=== PATIENT | male | born 1950 | race Native Hawaiian/Other Pacific Islander ===

== ENCOUNTER 2019-04-01 10:41 | Inpatient (IN) | payer OTHER ==
[2019-04-01 10:41] VITALS: BMI 25.0
[2019-04-01 11:44] LABS: BASO % 0.4 % (0.0-2.0); EOS % 0.1 % (0.0-4.0); HEMOGLOBIN 11.1 g/dL (12.0-18.0); LYMPH # 2.1 K/uL (1.0-4.3); LYMPH % 19.2 % (20.0-40.0); MEAN CELL VOLUME 71.9 fL (80.0-94.0); MEAN CORPUSCULAR HEMOGLOBIN 22.8 pg (27.0-31.0); MEAN CORPUSCULAR HGB CONC 31.7 g/dL (33.0-37.0); MEAN PLATELET VOLUME 9.5 fL (7.2-11.7); MONO # 0.5 K/uL (0.0-0.8); MONO % 4.3 % (0.0-10.0); NEUT # 8.2 K/uL (1.8-7.0); NRBC % 0.1 % (0.0-2.0); RBC 4.88 Mil/uL (4.40-5.90); WHITE BLOOD COUNT 10.8 K/uL (4.8-10.8)
[2019-04-01 11:52] LABS: INR 1.2; PARTIAL THROMBOPLASTIN TIME 29.2 SECONDS (21-34); PROTHROMBIN TIME 12.8 SECONDS (9.7-12.2)
[2019-04-01 11:57] LABS: ALB/GLOB RATIO 1.3 (1.0-2.1); ALBUMIN 4.1 g/dL (3.5-5.0); ALT/SGPT 22 U/L (21-72); AST/SGOT 29 U/L (17-59); BLOOD UREA NITROGEN 59 mg/dL (9-20); CALCIUM 8.7 mg/dl (8.6-10.4); GFR NON-AFRICAN AMERICAN > 60
--- NOTE | 2019-04-01 12:00 | C.PDOC ---
History Of Present Illness Patient presents to ED c/o two episodes of dark blood in his stool since yesterday and one episode of dark blood in vomit today. He also feels generalized weakness and palpitations today. Patient has PMhx of atrial fibrillation, previously on Pradaxa but now taking Plavix only. He denies chest pain, SOB, fever, abdominal or rectal pain, bleeding elsewhere. PMhx: HTN, gout, A fib. Time Seen by Provider: 04/01/19 10:56 Chief Complaint (Nursing): GI Problem History Per: Patient History/Exam Limitations: no limitations Onset/Duration Of Symptoms: Days (2) Severity: Moderate Past Medical History Reviewed: Historical Data, Nursing Documentation, Vital Signs Vital Signs: Last Vital Signs Temp 97.8 F 04/01/19 10:45 Pulse 91 H 04/01/19 11:15 Resp 21 04/01/19 11:15 BP 114/74 04/01/19 11:15 Pulse Ox 100 04/01/19 11:15 Primary Care Provider: Praveena Horton - Medical History PMH: Cardia Arrhythmia, HTN Family History: States: No Known Family Hx - Social History Hx Alcohol Use: Yes Hx Substance Use: No Review Of Systems Constitutional: Positive for: Weakness. Negative for: Fever, Chills Cardiovascular: Positive for: Palpitations. Negative for: Chest Pain Respiratory: Negative for: Cough, Shortness of Breath Gastrointestinal: Positive for: Melena, Hematemesis. Negative for: Nausea, Vomiting, Abdominal Pain, Diarrhea Genitourinary: Negative for: Dysuria, Hematuria Skin: Negative for: Rash Physical Exam - Physical Exam Appears: Well, Non-toxic, No Acute Distress Skin: Warm, Dry, No Pale Oral Mucosa: Moist Cardiovascular: Rhythm Irregular (tachycardic ) Respiratory: Normal Breath Sounds, No Rales, No Rhonchi, No Wheezing Gastrointestinal/Abdominal: Normal Exam, Bowel Sounds, Soft, No Tenderness Rectal: Rectal Tone (normal ), No Hemorrhoids, No Mass, No Tenderness ED Course And Treatment - Laboratory Results Result Diagrams: 04/01/19 11:35 04/01/19 11:35 Lab Results: PT 12.8 SECONDS (9.7-12.2) H 04/01/19 11:35 INR 1.2 04/01/19 11:35 APTT 29.2 SECONDS (21-34) 04/01/19 11:35 O2 Sat by Pulse Oximetry: 100 Progress Note: Blood work, UA, SFOB ordered. Patient given IV NS bolus, IV Cardizdem 20mg and IV protonix. 1:30pm- As per lab, they are unable to locate patient's occult blood test. Gauiac repeated by me. 3:20pm- Patient now with HR 130-140s again, Cardizem drip ordered. Disposition - Disposition
[2019-04-01 12:09] LABS: CK-MB 1.44 ng/mL (0.0-3.38)
[2019-04-01] MEDS ORDERED: Digoxin 250 mcg (0.25 mg) Tab PO STA (12:27)
[2019-04-01] MEDS ORDERED: Digoxin 250 mcg (0.25 mg) Tab ONE (12:32)
--- NOTE | 2019-04-01 14:58 | RAD ---
Date of service: 04/01/2019 HISTORY: palpitations, rectal bleeding COMPARISON: None available. TECHNIQUE: 1 view obtained. FINDINGS: LUNGS: Poor inspiration with low lung volumes crowded bronchovascular markings and bibasilar atelectasis PLEURA: No significant pleural effusion identified, no pneumothorax apparent. CARDIOVASCULAR: No aortic atherosclerotic calcification present. Normal cardiac size. No pulmonary vascular congestion. OSSEOUS STRUCTURES: No significant abnormalities. VISUALIZED UPPER ABDOMEN: Normal. OTHER FINDINGS: None. IMPRESSION: Poor inspiration with low lung volumes crowded bronchovascular markings and bibasilar atelectasis
[2019-04-01] MEDS: Pantoprazole 80 MG in Sodium Chloride 0.9% 100 ML IVPB STA (15:39)
[2019-04-01] MEDS ORDERED: Sodium Chloride 0.9% 1,000 ML IV ONE (15:54)
[2019-04-01] MEDS ORDERED: Sodium Chloride 0.9% 1,000 ML ONE (16:00)
--- NOTE | 2019-04-01 17:24 | CP.PCM.HP ---
History of Present Illness - History of Present Illness History of Present Illness: This is a 69 y/o male with known history of HTN, chronic atrial fibrillation and hyperlipidemia who went to the ER because of melena. patient claims that he developed abdominal pain 2 nights ago which was relieved after eating. He was fine until last night when he noticed passing black stools. He said he felt restless and felt his heart beating fast. Early this morning he again had melena associated with dizziness and lightheadedness followed by vomiting of blackish material a few hours later and hence he decided to go to the ER. He denies any chest pain or shortness of breath. No abdominal pain at this time. Denies any use of NSAID lately. Present on Admission - Present on Admission Any Indicators Present on Admission: No Review of Systems - Review of Systems Systems not reviewed;Unavailable: Unstable Vital Signs - Constitutional Constitutional: As Per HPI - EENT Eyes: Requires Corrective Lenses Ears: As Per HPI Nose/Mouth/Throat: As Per HPI, Dry Mouth - Cardiovascular Cardiovascular: Lightheadedness, Palpitations, Paroxysmal Nocturnal Dyspnea - Respiratory Respiratory: Dyspnea on Exertion - Gastrointestinal Gastrointestinal: Abdominal Pain, Melena, Vomiting - Genitourinary Genitourinary: As Per HPI, Urinary Incontinence - Reproductive: Male Reproductive:Male: As Per HPI - Musculoskeletal Musculoskeletal: As Per HPI - Integumentary Integumentary: As Per HPI - Endocrine Endocrine: As Per HPI Past Patient History - Infectious Disease Hx of Infectious Diseases: None - Past Social History Smoking Status: Never Smoked Chewing Tobacco Use: No Cigar Use: No Alcohol: Occasional Drugs: Denies Home Situation {Lives}: With Family - CARDIAC Hx Cardia Arrhythmia: Yes Hx Hypertension: Yes - PULMONARY Hx Respiratory Disorders: No - NEUROLOGICAL Hx Dizziness: Yes - HEENT Hx Cataracts: Yes - ENDOCRINE/METABOLIC Hx Endocrine Disorders: No - HEMATOLOGICAL/ONCOLOGICAL Hx Blood Disorders: No - INTEGUMENTARY Hx Dermatological Problems: No - MUSCULOSKELETAL/RHEUMATOLOGICAL Hx Musculoskeletal Disorders: No Hx Gout: Yes - GASTROINTESTINAL Hx Gastrointestinal Disorders: No - GENITOURINARY/GYNECOLOGICAL Hx Genitourinary Disorders: Yes Hx Bladder Cancer: No - PSYCHIATRIC Hx Psychophysiologic Disorder: No Hx Substance Use: No - SURGICAL HISTORY Hx Surgeries: No - ANESTHESIA Hx Anesthesia: No Meds Allergies/Adverse Reactions: Allergies Allergy/AdvReac Type Severity Reaction Status Date / Time No Known Allergies Allergy Verified 11/29/15 01:46 Physical Exam - Constitutional Appears: No Acute Distress - Head Exam Head Exam: NORMAL INSPECTION - Eye Exam Eye Exam: Normal appearance - ENT Exam ENT Exam: Normal Exam - Neck Exam Neck exam: Positive for: Normal Inspection - Respiratory Exam Respiratory Exam: Clear to Auscultation Bilateral, NORMAL BREATHING PATTERN - Cardiovascular Exam Cardiovascular Exam: Tachycardia, Irregular Rhythm, +S1, +S2 - GI/Abdominal Exam GI & Abdominal Exam: Hyperactive Bowel Sounds, Soft - Rectal Exam Rectal Exam: Black Stool - Extremities Exam Extremities exam: Positive for: normal inspection - Neurological Exam Neurological exam: Alert, CN II-XII Intact, Oriented x3 - Psychiatric Exam Psychiatric exam: Normal Affect, Normal Mood Results - Vital Signs Recent Vital Signs: Last Vital Signs Temp 97.8 F 04/01/19 10:45 Pulse 126 H 04/01/19 16:15 Resp 23 04/01/19 16:15 BP 100/66 04/01/19 16:15 Pulse Ox 100 04/01/19 16:15 - Labs Result Diagrams: 04/02/19 09:54 04/01/19 11:35 Labs: Laboratory Results - last 24 hr 04/01/19 04/01/19 04/01/19 11:15 11:35 11:35 WBC 10.8 RBC 4.88 Hgb 11.1 L Hct 35.1 MCV 71.9 L MCH 22.8 L MCHC 31.7 L RDW 15.0 H Plt Count 186 MPV 9.5 Neut % (Auto) 76.0 H Lymph % (Auto) 19.2 L Miller % (Auto) 4.3 Eos % (Auto) 0.1 Baso % (Auto) 0.4 Neut # (Auto) 8.2 H Lymph # (Auto) 2.1 Miller # (Auto) 0.5 Eos # (Auto) 0.0 Baso # (Auto) 0.0 PT 12.8 H INR 1.2 APTT 29.2 Sodium Potassium Chloride Carbon Dioxide Anion Gap BUN Creatinine Est GFR ( Amer) Est GFR (Non-Af Amer) POC Glucose (mg/dL) 153 H Random Glucose Calcium Total Bilirubin AST ALT Alkaline Phosphatase Total Creatine Kinase CK-MB (Mass) Troponin I Total Protein Albumin Globulin Albumin/Globulin Ratio Stool Occult Blood Digoxin Blood Type Antibody Screen 04/01/19 04/01/19 04/01/19 11:35 11:35 11:35 WBC RBC Hgb Hct MCV MCH MCHC RDW Plt Count MPV Neut % (Auto) Lymph % (Auto) Miller % (Auto) Eos % (Auto) Baso % (Auto) Neut # (Auto) Lymph # (Auto) Miller # (Auto) Eos # (Auto) Baso # (Auto) PT INR APTT Sodium 137 Potassium 4.9 Chloride 104 Carbon Dioxide 22 Anion Gap 15 BUN 59 H Creatinine 1.1 Est GFR ( Amer) > 60 Est GFR (Non-Af Amer) > 60 POC Glucose (mg/dL) Random Glucose 149 H Calcium 8.7 Total Bilirubin 0.8 AST 29 ALT 22 Alkaline Phosphatase 51 Total Creatine Kinase 84 CK-MB (Mass) 1.44 Troponin I < 0.0120 Total Protein 7.3 Albumin 4.1 Globulin 3.2 Albumin/Globulin Ratio 1.3 Stool Occult Blood Digoxin 0.5 L Blood Type A POSITIVE Antibody Screen Negative 04/01/19 14:40 WBC RBC Hgb Hct MCV MCH MCHC RDW Plt Count MPV Neut % (Auto) Lymph % (Auto) Miller % (Auto) Eos % (Auto) Baso % (Auto) Neut # (Auto) Lymph # (Auto) Miller # (Auto) Eos # (Auto) Baso # (Auto) PT INR APTT Sodium Potassium Chloride Carbon Dioxide Anion Gap BUN Creatinine Est GFR ( Amer) Est GFR (Non-Af Amer) POC Glucose (mg/dL) Random Glucose Calcium Total Bilirubin AST ALT Alkaline Phosphatase Total Creatine Kinase CK-MB (Mass) Troponin I Total Protein Albumin Globulin Albumin/Globulin Ratio Stool Occult Blood Positive H Digoxin Blood Type Antibody Screen Assessment & Plan (1) UGI bleed Assessment and Plan: R/O PUD or Acute Gastritis. NPO for now. Will monitor H/H and transfuse as needed. On Pantoprazole drip. GI Consult. Status: Acute (2) Acute anemia Assessment and Plan: To Monitor H/H and transfuse as needed. Status: Acute Priority: High (3) A-fib Assessment and Plan: Patient has chronic atrial fib but running very fast at this time mot likely because of the bleeding. On cardizem drip and will probably need blood transfusion. To monitor H/H. Check echocardiogram Status: Chronic Priority: High (4) Elevated BUN Assessment and Plan: Most likely from the bleeding. Status: Acute (5) HTN (hypertension) Assessment and Plan: Had postural hypotension earlier from the bleeding. Will hold his antihypertensives as patient already on Cardizem drip for the A Fib. Status: Acute - Assessment and Plan (Free Text) Assessment: 69 y/o male admitted with UGI Bleeding presenting as melena with prior history of abdominal pain and associated with dizziness when he gets up most likely due to Postural hypotension and rapid atrial fibrillation. R/O PUD, Acute Gastritis. Will monitor H/H and get GI consult. Started on Protonix IV and Cardizem IV with BP and telemetery monitoring. May need transfusion Decision To Admit - Pt Status Changed To: Hospital Disposition Of: Inpatient - Admit Certification Admit to Inpatient:: After my assessment, the patient will require hospitalization for at least two midnights. This is because of the severity of symptoms shown, intensity of services needed, and/or the medical risk in this patient being treated as an outpatient. - InPatient: Physician Admission Certification:: After my assessment, the patient will requir e hospitalization for at least two midnights. This is because of the severity of symptoms shown, intensity of services needed, and/or the medical risk in this patient being treated as an outpatient. - . Bed Request Type: Telemetry Admitting Physician: Praveena Horton
[2019-04-01 17:57] LABS: BASO % 0.3 % (0.0-2.0); LYMPH # 2.1 K/uL (1.0-4.3); LYMPH % 18.6 % (20.0-40.0); MEAN CELL VOLUME 71.2 fL (80.0-94.0); MEAN CORPUSCULAR HEMOGLOBIN 22.5 pg (27.0-31.0); MEAN CORPUSCULAR HGB CONC 31.6 g/dL (33.0-37.0); MEAN PLATELET VOLUME 9.1 fL (7.2-11.7); MONO # 0.8 K/uL (0.0-0.8); MONO % 6.7 % (0.0-10.0); NEUT # 8.4 K/uL (1.8-7.0); NEUT % 74.4 % (50.0-75.0); RBC 3.86 Mil/uL (4.40-5.90); RED CELL DISTRIBUTION WIDTH 14.9 % (11.5-14.5); WHITE BLOOD COUNT 11.3 K/uL (4.8-10.8)
[2019-04-01 18:12] LABS: HEMOGLOBIN 8.7 g/dL (12.0-18.0)
[2019-04-01 18:20] LABS: CK-MB 0.79 ng/mL (0.0-3.38)
[2019-04-01] MEDS: Dextrose 5%/0.45% NS 1,000 ML IV SCH (18:44)
--- NOTE | 2019-04-01 19:28 | CP.PCM.CON ---
History of Present Illness - History of Present Illness History of Present Illness: 69 yo male h/o afib, HTN, HCOL- now presents to with dark stools since last nite- 3 episodes- stool is sold dark with re tinge. Had 1 episode of hematemesis- brownish material. Question of epig discomfort over past few days- when hungry. is present. Pt is poor historian. Denies CP, SOB, PUS. + occ NSAID- last was 3 days ago. Review of Systems - Constitutional Constitutional: Fatigue, Weakness. absent: Weight Gain, Weight Loss - EENT Eyes: absent: Photophobia Nose/Mouth/Throat: absent: Throat Swelling - Cardiovascular Cardiovascular: absent: Chest Pain, Dyspnea, Palpitations, Syncope - Respiratory Respiratory: absent: Cough, Hemoptysis, Wheezing - Gastrointestinal Gastrointestinal: Abdominal Pain, Hematemesis, Melena. absent: Diarrhea, Dysphagia, Vomiting - Genitourinary Genitourinary: absent: Hematuria - Musculoskeletal Musculoskeletal: Arthralgias. absent: Muscle Cramps - Integumentary Integumentary: absent: Rash, Jaundice - Neurological Neurological: absent: Convulsions, Paresthesias Past Patient History - Past Social History Smoking Status: Never Smoked - CARDIAC Hx Cardia Arrhythmia: Yes Hx Hypertension: Yes - PSYCHIATRIC Hx Substance Use: No - SURGICAL HISTORY Hx Surgeries: No - ANESTHESIA Hx Anesthesia: No Meds Allergies/Adverse Reactions: Allergies Allergy/AdvReac Type Severity Reaction Status Date / Time No Known Allergies Allergy Verified 11/29/15 01:46 - Medications Medications: Current Medications Digoxin (Lanoxin) 0.25 mg PO DAILY [facility] Pantoprazole Sodium 80 mg/ (Sodium Chloride) 100 mls @ 10 mls/hr IVPB .Q10H [facility] Stop: 04/02/19 00:53 Last Admin: 04/01/19 15:39 Dose: 10 mls/hr Diltiazem HCl 125 mg/ Sodium (Chloride) 125 mls @ 5 mls/hr IV .Q24H [facility]; Protocol Stop: 04/02/19 15:30 Last Admin: 04/01/19 15:55 Dose: 5 mg/hr, 5 mls/hr Dextrose/Sodium Chloride (Dextrose 5%/0.45% Ns 1000 Ml) 1,000 mls @ 100 mls/hr IV .Q10H [facility] Last Admin: 04/01/19 18:44 Dose: 100 mls/hr Physical Exam - Constitutional Appears: Non-toxic - Respiratory Exam Respiratory Exam: Clear to Auscultation Bilateral - Cardiovascular Exam Cardiovascular Exam: Tachycardia, Irregular Rhythm - GI/Abdominal Exam GI & Abdominal Exam: Normal Bowel Sounds, Soft. absent: Distended, Mass, Rebound, Tenderness - Rectal Exam Rectal Exam: Deferred - Extremities Exam Extremities exam: Negative for: calf tenderness - Neurological Exam Neurological exam: Alert, Oriented x3 Results - Vital Signs Recent Vital Signs: Last Vital Signs Temp 98.6 F 04/01/19 18:18 Pulse 104 H 04/01/19 18:18 Resp 20 04/01/19 18:18 BP 114/70 04/01/19 18:18 Pulse Ox 99 04/01/19 18:18 - Labs Result Diagrams: 04/01/19 17:50 04/01/19 11:35 Labs: Laboratory Results - last 24 hr 04/01/19 04/01/19 04/01/19 11:15 11:35 11:35 WBC 10.8 RBC 4.88 Hgb 11.1 L Hct 35.1 MCV 71.9 L MCH 22.8 L MCHC 31.7 L RDW 15.0 H Plt Count 186 MPV 9.5 Neut % (Auto) 76.0 H Lymph % (Auto) 19.2 L Eaton % (Auto) 4.3 Eos % (Auto) 0.1 Baso % (Auto) 0.4 Neut # (Auto) 8.2 H Lymph # (Auto) 2.1 Eaton # (Auto) 0.5 Eos # (Auto) 0.0 Baso # (Auto) 0.0 PT 12.8 H INR 1.2 APTT 29.2 Sodium Potassium Chloride Carbon Dioxide Anion Gap BUN Creatinine Est GFR ( Amer) Est GFR (Non-Af Amer) POC Glucose (mg/dL) 153 H Random Glucose Calcium Total Bilirubin AST ALT Alkaline Phosphatase Total Creatine Kinase CK-MB (Mass) Troponin I Total Protein Albumin Globulin Albumin/Globulin Ratio Stool Occult Blood Digoxin Blood Type Antibody Screen 04/01/19 04/01/19 04/01/19 11:35 11:35 11:35 WBC RBC Hgb Hct MCV MCH MCHC RDW Plt Count MPV Neut % (Auto) Lymph % (Auto) Eaton % (Auto) Eos % (Auto) Baso % (Auto) Neut # (Auto) Lymph # (Auto) Eaton # (Auto) Eos # (Auto) Baso # (Auto) PT INR APTT Sodium 137 Potassium 4.9 Chloride 104 Carbon Dioxide 22 Anion Gap 15 BUN 59 H Creatinine 1.1 Est GFR ( Amer) > 60 Est GFR (Non-Af Amer) > 60 POC Glucose (mg/dL) Random Glucose 149 H Calcium 8.7 Total Bilirubin 0.8 AST 29 ALT 22 Alkaline Phosphatase 51 Total Creatine Kinase 84 CK-MB (Mass) 1.44 Troponin I < 0.0120 Total Protein 7.3 Albumin 4.1 Globulin 3.2 Albumin/Globulin Ratio 1.3 Stool Occult Blood Digoxin 0.5 L Blood Type A POSITIVE Antibody Screen Negative 04/01/19 04/01/19 04/01/19 14:40 17:50 17:50 WBC 11.3 H RBC 3.86 L Hgb 8.7 L D Hct 27.5 L MCV 71.2 L MCH 22.5 L MCHC 31.6 L RDW 14.9 H Plt Count 136 MPV 9.1 Neut % (Auto) 74.4 Lymph % (Auto) 18.6 L Eaton % (Auto) 6.7 Eos % (Auto) 0.0 Baso % (Auto) 0.3 Neut # (Auto) 8.4 H Lymph # (Auto) 2.1 Eaton # (Auto) 0.8 Eos # (Auto) 0.0 Baso # (Auto) 0.0 PT INR APTT Sodium Potassium Chloride Carbon Dioxide Anion Gap BUN Creatinine Est GFR ( Amer) Est GFR (Non-Af Amer) POC Glucose (mg/dL) Random Glucose Calcium Total Bilirubin AST ALT Alkaline Phosphatase Total Creatine Kinase 52 L CK-MB (Mass) 0.79 Troponin I < 0.0120 Total Protein Albumin Globulin Albumin/Globulin Ratio Stool Occult Blood Positive H Digoxin Blood Type Antibody Screen Assessment & Plan (1) A-fib Assessment and Plan: On plavix. Rapid response today- given diltiazem Status: Acute (2) Melena Assessment and Plan: Consider ulcer, NSAID related, ectasia, MW tear. Worsened with plavix and NSAId. Hb has dropped from 11 to 8. BUN is elevated. I called Dr Jacobsen now and discussed case. She recommends to stabilze patient tonight cardiologically and transfuse 2 units blood, and then will be OK for endoscopy tomorrow. Plan- protonix drip, check Hb, transfuse 2 units, [id number]. Hold NSAId, hold plavix Status: Acute (3) Hematemesis Status: Acute (4) HTN (hypertension) Status: Acute (5) Hyperlipidemia Status: Acute
[2019-04-02] MEDS: Pantoprazole 80 MG in Sodium Chloride 0.9% 100 ML IVPB STA (00:05)
[2019-04-02 09:58] LABS: HEMOGLOBIN 10.3 g/dL (12.0-18.0); MEAN PLATELET VOLUME 9.1 fL (7.2-11.7); WHITE BLOOD COUNT 8.9 K/uL (4.8-10.8)
[2019-04-02] MEDS ORDERED: Digoxin 250 mcg (0.25 mg) Tab PO SCH (10:00)
[2019-04-02] MEDS ORDERED: Digoxin 250 mcg (0.25 mg) Tab NG SCH (10:00)
[2019-04-02 10:03] LABS: MEAN CORPUSCULAR HEMOGLOBIN 25.1 pg (27.0-31.0); MEAN CORPUSCULAR HGB CONC 33.5 g/dL (33.0-37.0); RBC 4.11 Mil/uL (4.40-5.90); RED CELL DISTRIBUTION WIDTH 17.9 % (11.5-14.5)
[2019-04-02 10:11] LABS: ALB/GLOB RATIO 1.3 (1.0-2.1); ALBUMIN 3.2 g/dL (3.5-5.0); ALT/SGPT 22 U/L (21-72); AST/SGOT 26 U/L (17-59); BLOOD UREA NITROGEN 29 mg/dL (9-20); CALCIUM 8.4 mg/dl (8.6-10.4); GFR NON-AFRICAN AMERICAN > 60
[2019-04-02] MEDS ORDERED: Propofol 10 mg/ml Inj (20 ML) ONE (11:32)
[2019-04-02] MEDS ORDERED: Etomidate 20 mg/10ml Inj IV ONE (11:32)
--- NOTE | 2019-04-02 11:38 | CP.PCM.PN ---
Subjective - Date & Time of Evaluation Date of Evaluation: 04/02/19 Time of Evaluation: 11:36 - Subjective Subjective: EGD: Medium gastric ulcer antrum 1.2 cm. Clean base, no vessel. No active bleeding. Rec- Protonix 40 mg BID, follow Hb, avoid NSAID. hold Plavix 5 days- if possible. Objective - Vital Signs/Intake and Output Vital Signs (last 24 hours): Temp Pulse Resp BP Pulse Ox 98.8 F 75 17 106/67 100 04/02/19 08:16 04/02/19 09:50 04/02/19 08:16 04/02/19 09:50 04/02/19 07:00 Intake and Output: 04/02/19 04/02/19 06:59 18:59 Intake Total 680 325 Output Total 800 Balance -120 325 - Medications Medications: Current Medications Digoxin (Lanoxin) 0.125 mg NG DAILY [facility] Diltiazem HCl 125 mg/ Sodium (Chloride) 125 mls @ 5 mls/hr IV .Q24H [facility]; Protocol Stop: 04/02/19 15:30 Last Admin: 04/01/19 15:55 Dose: 5 mg/hr, 5 mls/hr Dextrose/Sodium Chloride (Dextrose 5%/0.45% Ns 1000 Ml) 1,000 mls @ 100 mls/hr IV .Q10H [facility] Last Admin: 04/01/19 18:44 Dose: 100 mls/hr Pantoprazole Sodium 80 mg/ (Sodium Chloride) 100 mls @ 10 mls/hr IVPB ONCE [facility] Pneumococcal Polyvalent Vaccine (Pneumovax 23 Vaccine) 0.5 ml IM .ONCE ONE Stop: 04/03/19 10:01 - Labs Labs: 04/02/19 09:54 04/02/19 09:54 PT 12.8 SECONDS (9.7-12.2) H 04/01/19 11:35 INR 1.2 04/01/19 11:35 APTT 29.2 SECONDS (21-34) 04/01/19 11:35 Assessment and Plan (1) A-fib Status: Chronic (2) Melena Status: Acute (3) Hematemesis Status: Acute (4) HTN (hypertension) Status: Acute (5) Hyperlipidemia Status: Acute
[2019-04-02] MEDS: Dextrose 5%/0.45% NS 1,000 ML IV SCH ×3 (12:51→23:30)
--- NOTE | 2019-04-02 14:25 | CP.PCM.PN ---
Subjective - Date & Time of Evaluation Date of Evaluation: 04/02/19 Time of Evaluation: 01:50 - Subjective Subjective: Patient more comfortable today. Had melena once this morning Received 2 units of blood transfusion overnight because of drop in H/H and rapid A Fib Will continue to check H/H until stable Had upper endoscopy earlier today- has gastric ulcer and gastritis To continue Pantoprazole Heart rate much better controlled after blood transfusion and Cardizem drip ROB x2 wnl. Will start on po cardizem and d/c Cardizem drip. Continue telemetry monitoring. BUN also elevated because of Bleeding. Lower today after some hydration. Objective - Vital Signs/Intake and Output Vital Signs (last 24 hours): Temp Pulse Resp BP Pulse Ox 97 F L 75 18 106/70 100 04/02/19 12:50 04/02/19 12:50 04/02/19 12:50 04/02/19 12:50 04/02/19 12:50 Intake and Output: 04/02/19 04/02/19 06:59 18:59 Intake Total 680 450 Output Total 800 Balance -120 450 - Medications Medications: Current Medications Digoxin (Lanoxin) 0.125 mg NG DAILY [facility] Last Admin: 04/02/19 12:51 Dose: 0.125 mg Diltiazem HCl (Cardizem) 60 mg PO Q8H [facility] Diltiazem HCl 125 mg/ Sodium (Chloride) 125 mls @ 5 mls/hr IV .Q24H [facility]; Protocol Stop: 04/02/19 15:30 Last Admin: 04/01/19 15:55 Dose: 5 mg/hr, 5 mls/hr Dextrose/Sodium Chloride (Dextrose 5%/0.45% Ns 1000 Ml) 1,000 mls @ 100 mls/hr IV .Q10H [facility] Last Admin: 04/02/19 12:51 Dose: 100 mls/hr Pantoprazole Sodium 80 mg/ (Sodium Chloride) 100 mls @ 10 mls/hr IVPB Q10H [facility] Pneumococcal Polyvalent Vaccine (Pneumovax 23 Vaccine) 0.5 ml IM .ONCE ONE Stop: 04/03/19 10:01 - Labs Labs: 04/02/19 09:54 04/02/19 09:54 PT 12.8 SECONDS (9.7-12.2) H 05/31/19 11:35 INR 1.2 04/01/19 11:35 APTT 29.2 SECONDS (21-34) 04/01/19 11:35 - Constitutional Appears: No Acute Distress - Head Exam Head Exam: NORMAL INSPECTION - Eye Exam Eye Exam: Normal appearance - ENT Exam ENT Exam: Mucous Membranes Moist - Neck Exam Neck Exam: Normal Inspection - Respiratory Exam Respiratory Exam: Accessory Muscle Use, Clear to Ausculation Bilateral, NORMAL BREATHING PATTERN - Cardiovascular Exam Cardiovascular Exam: Irregular Rhythm, +S1, +S2 - GI/Abdominal Exam GI & Abdominal Exam: Soft, Normal Bowel Sounds - Extremities Exam Extremities Exam: Normal Inspection - Back Exam Back Exam: NORMAL INSPECTION - Neurological Exam Neurological Exam: Alert, Awake, Oriented x3 - Psychiatric Exam Psychiatric exam: Normal Affect, Normal Mood - Skin Skin Exam: Dry, Intact, Normal Color, Warm Assessment and Plan (1) UGI bleed Status: Acute (2) Acute anemia Status: Acute (3) A-fib Status: Chronic (4) Elevated BUN Status: Acute (5) HTN (hypertension) Status: Acute
[2019-04-02 19:49] LABS: BASO % 0.5 % (0.0-2.0); EOS # 0.1 K/uL (0.0-0.7); EOS % 1.3 % (0.0-4.0); HEMOGLOBIN 10.5 g/dL (12.0-18.0); LYMPH # 2.5 K/uL (1.0-4.3); LYMPH % 26.1 % (20.0-40.0); MEAN CELL VOLUME 75.5 fL (80.0-94.0); MEAN CORPUSCULAR HEMOGLOBIN 24.4 pg (27.0-31.0); MEAN CORPUSCULAR HGB CONC 32.3 g/dL (33.0-37.0); MEAN PLATELET VOLUME 8.9 fL (7.2-11.7); MONO # 0.8 K/uL (0.0-0.8); MONO % 8.5 % (0.0-10.0); NEUT # 6.2 K/uL (1.8-7.0); NEUT % 63.6 % (50.0-75.0); NRBC % 0.1 % (0.0-2.0); RBC 4.32 Mil/uL (4.40-5.90); WHITE BLOOD COUNT 9.8 K/uL (4.8-10.8)
[2019-04-02] MEDS: Pantoprazole 80 MG in Sodium Chloride 0.9% 100 ML IVPB SCH (20:07)
[2019-04-03] MEDS: Pantoprazole 80 MG in Sodium Chloride 0.9% 100 ML IVPB SCH ×3 (05:42→17:33)
[2019-04-03 07:24] LABS: HEMOGLOBIN 10.5 g/dL (12.0-18.0); MEAN CELL VOLUME 75.3 fL (80.0-94.0); MEAN CORPUSCULAR HGB CONC 33.2 g/dL (33.0-37.0); MEAN PLATELET VOLUME 9.2 fL (7.2-11.7); RBC 4.19 Mil/uL (4.40-5.90); RED CELL DISTRIBUTION WIDTH 17.6 % (11.5-14.5); WHITE BLOOD COUNT 7.7 K/uL (4.8-10.8)
[2019-04-03 08:00] LABS: BLOOD UREA NITROGEN 18 mg/dL (9-20); CALCIUM 8.7 mg/dl (8.6-10.4); GFR NON-AFRICAN AMERICAN > 60
[2019-04-03] MEDS ORDERED: Pneumococcal 23-Valent Vaccine IM ONE (10:00)
[2019-04-03] MEDS: Dextrose 5%/0.45% NS 1,000 ML IV SCH (11:57)
--- NOTE | 2019-04-03 15:15 | CP.PCM.PN ---
Subjective - Date & Time of Evaluation Date of Evaluation: 04/03/19 Time of Evaluation: 14:30 - Subjective Subjective: f/u GI bleed. Reports nausea, poor appetitie. Denies RB, abd pain, melena, fever, chills , SZ, LOC SOB, hematuria Objective - Vital Signs/Intake and Output Vital Signs (last 24 hours): Temp Pulse Resp BP Pulse Ox 98.0 F 90 18 110/68 100 04/03/19 07:30 04/03/19 09:01 04/03/19 07:30 04/03/19 07:30 04/03/19 07:30 Intake and Output: 04/03/19 04/03/19 06:59 18:59 Intake Total 1830 Output Total 1400 Balance 430 - Medications Medications: Current Medications Digoxin (Digoxin) 0.125 mg PO 1800 [facility] Diltiazem HCl (Cardizem) 60 mg PO Q8H [facility] Last Admin: 04/03/19 13:51 Dose: 60 mg Pantoprazole Sodium 80 mg/ (Sodium Chloride) 100 mls @ 10 mls/hr IVPB Q10H [facility] Last Admin: 04/03/19 07:00 Dose: Not Given Dextrose/Sodium Chloride (Dextrose 5%/0.45% Ns 1000 Ml) 1,000 mls @ 75 mls/hr IV .[id number] [facility] Last Admin: 04/03/19 11:57 Dose: 75 mls/hr Pneumococcal Polyvalent Vaccine (Pneumovax 23 Vaccine) 0.5 ml IM .ONCE ONE Stop: 04/04/19 14:01 - Labs Labs: 04/03/19 07:11 04/03/19 07:11 PT 12.8 SECONDS (9.7-12.2) H 04/01/19 11:35 INR 1.2 04/01/19 11:35 APTT 29.2 SECONDS (21-34) 04/01/19 11:35 - Constitutional Appears: Non-toxic - Neck Exam Neck Exam: absent: Tenderness - Respiratory Exam Respiratory Exam: Clear to Ausculation Bilateral - Cardiovascular Exam Cardiovascular Exam: RRR - GI/Abdominal Exam GI & Abdominal Exam: Soft, Normal Bowel Sounds. absent: Guarding, Tenderness, Mass, Rebound - Extremities Exam Extremities Exam: absent: Calf Tenderness - Neurological Exam Neurological Exam: Alert, Oriented x3 Assessment and Plan (1) A-fib Status: Chronic (2) Melena Assessment & Plan: gastric ulcer Status: Acute (3) Hematemesis Status: Acute (4) HTN (hypertension) Status: Acute (5) Hyperlipidemia Status: Acute (6) Gastric ulcer Assessment & Plan: No active bleeding. Rec- check Hb, bland diet, hold plavix, PPI BID, h pylori stool test Status: Acute
[2019-04-03 17:32] VITALS: PULSE 90
[2019-04-03] MEDS ORDERED: Digoxin 125 mcg (0.125 mg) Tab PO SCH (18:00)
[2019-04-04] MEDS: Pantoprazole 80 MG in Sodium Chloride 0.9% 100 ML IVPB SCH ×2 (00:43→10:47)
[2019-04-04 07:19] LABS: HEMOGLOBIN 11.4 g/dL (12.0-18.0); MEAN CELL VOLUME 75.8 fL (80.0-94.0); MEAN CORPUSCULAR HEMOGLOBIN 25.1 pg (27.0-31.0); MEAN CORPUSCULAR HGB CONC 33.1 g/dL (33.0-37.0); MEAN PLATELET VOLUME 9.4 fL (7.2-11.7); RBC 4.53 Mil/uL (4.40-5.90); RED CELL DISTRIBUTION WIDTH 17.8 % (11.5-14.5); WHITE BLOOD COUNT 9.3 K/uL (4.8-10.8)
[2019-04-04 07:53] LABS: ALB/GLOB RATIO 1.5 (1.0-2.1); ALBUMIN 4.1 g/dL (3.5-5.0); ALT/SGPT 52 U/L (21-72); AST/SGOT 59 U/L (17-59); BLOOD UREA NITROGEN 14 mg/dL (9-20); CALCIUM 8.8 mg/dl (8.6-10.4); GFR NON-AFRICAN AMERICAN > 60
[2019-04-04 07:58] VITALS: PULSE 88; RESP 18; TEMP 98.9; O2SAT 100
--- NOTE | 2019-04-04 13:05 | CP.PCM.DIS ---
Provider - Provider Date of Admission: 04/01/19 15:00 Attending physician: Praveena Horton MD Primary care physician: Boni Horton Consults: 04/01/19 16:31 Gastroenterology Consult Routine Comment: Consulting Provider: Herman Rg Consulting Physician: Herman Rg Reason for Consult: melena Time Spent in preparation of Discharge (in minutes): 45 Diagnosis - Discharge Diagnosis (1) UGI bleed Status: Resolved (2) Acute anemia Status: Resolved Priority: High (3) A-fib Status: Chronic Priority: Medium (4) Elevated BUN Status: Resolved (5) HTN (hypertension) Status: Resolved Hospital Course - Lab Results Lab Results: Most Recent Lab Values WBC 9.3 K/uL (4.8-10.8) 04/04/19 07:08 RBC 4.53 Mil/uL (4.40-5.90) 04/04/19 07:08 Hgb 11.4 g/dL (12.0-18.0) L 04/04/19 07:08 Hct 34.3 % (35.0-51.0) L 04/04/19 07:08 MCV 75.8 fL (80.0-94.0) L 04/04/19 07:08 MCH 25.1 pg (27.0-31.0) L 04/04/19 07:08 MCHC 33.1 g/dL (33.0-37.0) 04/04/19 07:08 RDW 17.8 % (11.5-14.5) H 04/04/19 07:08 Plt Count 154 K/uL (130-400) 04/04/19 07:08 MPV 9.4 fL (7.2-11.7) 04/04/19 07:08 Neut % (Auto) 63.6 % (50.0-75.0) 04/02/19 19:44 Lymph % (Auto) 26.1 % (20.0-40.0) 04/02/19 19:44 Bleck[place] % (Auto) 8.5 % (0.0-10.0) 04/02/19 19:44 Eos % (Auto) 1.3 % (0.0-4.0) 04/02/19 19:44 Baso % (Auto) 0.5 % (0.0-2.0) 04/02/19 19:44 Neut # (Auto) 6.2 K/uL (1.8-7.0) 04/02/19 19:44 Lymph # (Auto) 2.5 K/uL (1.0-4.3) 04/02/19 19:44 Bleckley # (Auto) 0.8 K/uL (0.0-0.8) 04/02/19 19:44 Eos # (Auto) 0.1 K/uL (0.0-0.7) 04/02/19 19:44 Baso # (Auto) 0.0 K/uL (0.0-0.2) 04/02/19 19:44 PT 12.8 SECONDS (9.7-12.2) H 04/01/19 11:35 INR 1.2 04/01/19 11:35 APTT 29.2 SECONDS (21-34) 04/01/19 11:35 Sodium 137 mmol/L (132-148) 04/04/19 07:08 Potassium 4.2 mmol/L (3.6-5.2) 04/04/19 07:08 Chloride 102 mmol/L (98-107) 04/04/19 07:08 Carbon Dioxide 22 mmol/L (22-30) 04/04/19 07:08 Anion Gap 18 (10-20) 04/04/19 07:08 BUN 14 mg/dL (9-20) 04/04/19 07:08 Creatinine 1.1 mg/dL (0.8-1.5) 04/04/19 07:08 Est GFR ( Amer) > 60 04/04/19 07:08 Est GFR (Non-Af Amer) > 60 04/04/19 07:08 POC Glucose (mg/dL) 153 mg/dL (65-110) H 04/01/19 11:15 Random Glucose 111 mg/dL (75-110) H 04/04/19 07:08 Calcium 8.8 mg/dl (8.6-10.4) 04/04/19 07:08 Total Bilirubin 0.8 mg/dL (0.2-1.3) 04/04/19 07:08 AST 59 U/L (17-59) D 04/04/19 07:08 ALT 52 U/L (21-72) 04/04/19 07:08 Alkaline Phosphatase 62 U/L (38-126) 04/04/19 07:08 Total Creatine Kinase 52 U/L (55-170) L 04/01/19 17:50 CK-MB (Mass) 0.79 ng/mL (0.0-3.38) 04/01/19 17:50 Troponin I < 0.0120 ng/mL (0.00-0.120) 04/01/19 17:50 Total Protein 6.8 g/dL (6.3-8.3) 04/04/19 07:08 Albumin 4.1 g/dL (3.5-5.0) 04/04/19 07:08 Globulin 2.8 gm/dL (2.2-3.9) 04/04/19 07:08 Albumin/Globulin Ratio 1.5 (1.0-2.1) 04/04/19 07:08 Stool Occult Blood Positive (NEGATIVE) H 04/01/19 14:40 Digoxin 0.5 ng/mL (0.8-2.0) L 04/01/19 11:35 Blood Type A POSITIVE 04/01/19 11:35 Antibody Screen Negative 04/01/19 11:35 - Hospital Course Hospital Course: This is a 69 y/o male who was admitted to the hospital because of melena 3x and hematemesis. He reportedly had abdominal pain 2 days prior to admission. He started to pass black stools a day later. he does admit to taking aleve every now and then for body aches and pains. Melena was accompanied by lighthededness when he stood up. He was admitted and received 2 untis of blood transfusion and started on Protonix IV. GI consult was obtained and put him NPO. Upper endoscopy was done that showed gastric ulcer and gastritis. His dizziness improved and he was after blood transfusion and no further bleeding was noted. He has history of atrial fib and was in rapid ventricular response when he came in that improved also after blood transfusion. He is advised to continue current meds and refrain from NSAIDs. He will be seen on follow up in the ofice in 2 weeks. He also had an echocardiogram but no official report is available yet. Discharge Exam - Head Exam Head Exam: NORMAL INSPECTION - Eye Exam Eye Exam: Normal appearance Pupil Exam: NORMAL ACCOMODATION - ENT Exam ENT Exam: Normal Exam - Neck Exam Neck exam: Normal Inspection - Respiratory Exam Respiratory Exam: Clear to PA & Lateral, NORMAL BREATHING PATTERN - Cardiovascular Exam Cardiovascular Exam: Irregular Rhythm, +S1, +S2 - GI/Abdominal Exam GI & Abdominal Exam: Normal Bowel Sounds, Soft - Extremities Exam Extremities exam: normal inspection - Neurological Exam Neurological exam: Alert, Oriented x3 - Skin Skin Exam: Dry, Intact, Normal Color, Warm Discharge Plan - Discharge Medications Prescriptions: diltiaZEM CD [Cardizem CD] 180 mg PO DAILY 30 Days #30 cap Pantoprazole [Protonix EC Tab] 40 mg PO BID 30 Days #60 ect - Follow Up Plan Condition: GOOD Disposition: HOME/ ROUTINE Instructions: Atrial Fibrillation (DC), High Blood Pressure (DC), Gastrointestinal Bleeding (DC), Low Salt Diet, Bloody Stools, Adult (DC) Additional Instructions: Do not take any NSAID. Hold Plavix for 5 days Restart on Thursday, 04/08. Office follow up in 2 weeks. Referrals: Praveena Horton MD [Staff Provider] - Herman Rg MD [Staff Provider] - Clinical Quality Measures - CQM - Stroke Antithrombotic Prescribed: Medical Contraindication Present Contranindication/Reason for not providing: Risk for Bleeding Anticoagulation Prescribed for Atrial Flutter, Atrial Fibrillation and History of:: Medical Contraindication Present Contranindication/Reason for not providing: Risk for Bleeding
[2019-04-04] MEDS ORDERED: diltiaZEM 180 mg/24 Hours CD Cap PO SCH (13:15)
[2019-04-04] MEDS ORDERED: Pneumococcal 23-Valent Vaccine IM ONE (14:00)
--- NOTE | 2019-04-04 15:13 | CARD ---
APPROVED REPORT Date of service: 04/04/2019 EXAM: Two-dimensional and M-mode echocardiogram with Doppler and color Doppler. INDICATION Atrial Fibrillation Palpitations RISK FACTORS Hypertension 2D DIMENSIONS IVSd1.1 (0.7-1.1cm)LVDd4.3 (3.9-5.9cm) PWd1.0 (0.7-1.1cm)LA Qiymju07 (18-58mL) LVDs2.7 (2.5-4.0cm)FS (%) 36.8 % LVEF (%)67.0 (>50%)LVEF (Hernandez's)59.14 % IVC0.00 cm M-Mode DIMENSIONS RVDd2.54 (2.1-3.2cm)Left Atrium (MM)3.89 (2.5-4.0cm) IVSd0.90 (0.7-1.1cm)Aortic Root3.07 (2.2-3.7cm) LVDd4.53 (4.0-5.6cm)Aortic Cusp Exc.1.99 (1.5-2.0cm) PWd0.90 (0.7-1.1cm)FS (%) 39 % LVDs2.78 (2.0-3.8cm)LVEF (%)69 (>50%) Aortic Valve AI P 1/2 [id number] Mitral Valve MV E Gzjopbha96.6cm/sMV A Lkwluxfb98.2cm/sE/A ratio2.3 TDI Lateral E' Peak V11.51cm/sMedial E' Peak V10.35cm/sE/Lateral E'7.9 E/Medial E'8.8 Tricuspid Valve TR Peak Bujydhio851td/sTR Peak Gr.49yzFvDSXV26rrZk LEFT VENTRICLE The left ventricle is normal size. There is normal left ventricular wall thickness. The left ventricular function is normal. The left ventricular ejection fraction is within the normal range. No regional wall motion abnormalities noted. LV filling pressure is normal No left ventricle thrombus noted on this study. There is no ventricular septal defect visualized. There is no left ventricular aneurysm. There is no mass noted in the left ventricle. RIGHT VENTRICLE The right ventricle is normal size. There is normal right ventricular wall thickness. The right ventricular systolic function is normal. ATRIA The left atrium volume is mildly increased The right atrium size is normal. The interatrial septum is intact with no evidence for an atrial septal defect. AORTIC VALVE The aortic valve is normal in structure and function. There is mild aortic regurgitation. There is no aortic valvular stenosis. There is no aortic valvular vegetation. MITRAL VALVE The mitral valve is normal in structure and function. There is no evidence of mitral valve prolapse. There is no mitral valve stenosis. Mitral regurgitation is mild. TRICUSPID VALVE The tricuspid valve is normal in structure and function. There is mild tricuspid regurgitation. Right ventricular systolic pressure is estimated at less than 30 mmHg. There is no tricuspid valve prolapse or vegetation. There is no tricuspid valve stenosis. PULMONIC VALVE The pulmonary valve is normal in structure and function. There is no pulmonic valvular regurgitation. There is no pulmonic valvular stenosis. GREAT VESSELS The aortic root is normal in size. The ascending aorta is normal in size. The pulmonary artery is normal. The IVC is normal in size and collapses >50% with inspiration. PERICARDIAL EFFUSION The pericardium appears normal. There is no pleural effusion. <Conclusion> The left ventricular function is normal. The left ventricular ejection fraction is within the normal range. No regional wall motion abnormalities noted. The left atrium volume is mildly increased There is mild aortic regurgitation. Mitral regurgitation is mild.
--- NOTE | 2019-04-04 15:54 | CARD ---
APPROVED REPORT Date of service: 04/02/2019 EKG Measurement Heart [id number] <Conclusion> Atrial fibrillation Abnormal ECG
[2019-04-04 16:28] VITALS: BP 130/71
[2019-04-04] MEDS ORDERED: Pantoprazole 40 mg EC Tab PO SCH (18:00)
--- NOTE | 2019-04-04 18:01 | CP.PCM.PN ---
Subjective - Date & Time of Evaluation Date of Evaluation: 04/04/19 Time of Evaluation: 18:00 - Subjective Subjective: Seen earlier today, feels well, no bleeding Hgb stable Objective - Vital Signs/Intake and Output Vital Signs (last 24 hours): Temp Pulse Resp BP Pulse Ox 98.9 F 88 18 130/71 100 04/04/19 15:28 04/04/19 15:28 04/04/19 15:28 04/04/19 15:28 04/04/19 15:28 Intake and Output: 04/04/19 04/04/19 06:59 18:59 Intake Total 80 Output Total 500 Balance -420 - Medications Medications: Current Medications Digoxin (Digoxin) 0.125 mg PO 1800 [facility] Last Admin: 04/03/19 17:32 Dose: 0.125 mg Diltiazem HCl (Cardizem Cd) 180 mg PO DAILY [facility] Last Admin: 04/04/19 14:00 Dose: 180 mg Pantoprazole Sodium (Protonix Ec Tab) 40 mg PO BID [facility] - Labs Labs: 04/04/19 07:08 04/04/19 07:08 PT 12.8 SECONDS (9.7-12.2) H 04/01/19 11:35 INR 1.2 04/01/19 11:35 APTT 29.2 SECONDS (21-34) 04/01/19 11:35 - Constitutional Appears: Well, No Acute Distress - GI/Abdominal Exam GI & Abdominal Exam: Soft. absent: Tenderness Assessment and Plan (1) Gastric ulcer Assessment & Plan: [place] term PPI follow up in office Contact information provided Status: Acute
[2019-04-05] MEDS ORDERED: Pantoprazole 40 mg EC Tab PO SCH (10:00)
--- NOTE | 2019-04-06 22:27 | CARD ---
APPROVED REPORT Date of service: 04/01/2019 EKG Measurement Heart [id number] <Conclusion> Atrial flutter with variable AV block Abnormal ECG
--- NOTE | 2019-04-06 22:31 | CARD ---
APPROVED REPORT Date of service: 04/01/2019 EKG Measurement Heart [id number] <Conclusion> Atrial fibrillation with rapid ventricular response Nonspecific ST and T wave abnormality Abnormal ECG
== END 2019-04-04 16:35 | disposition home or self-care (01) | DRG 378 ==
LOC: C.ER 10:41 → C.9E 15:00 → C.6T 15:55
PROVIDERS: ADMIT Internal Medicine Cardiovascular Disease; ATTEND Internal Medicine Cardiovascular Disease
PROC: 30233N1 Transfusion of Nonautologous Red Blood Cells into Peripheral Vein, Percutaneous Approach (ICD-10-PCS; 2019-04-01)
PROC: 0DJ08ZZ Inspection of Upper Intestinal Tract, Via Natural or Artificial Opening Endoscopic (ICD-10-PCS; principal; 2019-04-02 10:30)
DX: K25.4 Chronic or unspecified gastric ulcer with hemorrhage (principal); D62 Acute posthemorrhagic anemia; K29.70 Gastritis, unspecified, without bleeding; I95.1 Orthostatic hypotension; I48.2 Chronic atrial fibrillation; I10 Essential (primary) hypertension; E78.5 Hyperlipidemia, unspecified